=== PATIENT | female | born 1970 | race Caucasian/White ===

== ENCOUNTER 2018-08-21 16:18 | Inpatient (IN) | payer MEDICAID ==
[~2018-08-21] VITALS: Ht 160 cm; Wt 81.2 kg
[2018-08-21 18:00] LABS: BASOPHIL % 0.9 % (0-2); PLATELET COUNT 232 x10^3mcL (130-400)
[2018-08-21 18:03] LABS: RED CELL DISTRIBUTION WIDTH 15.7 % (11.5-14.5)
[2018-08-21 18:13] LABS: CALCIUM 7.9 mg/dL (8.5-10.1); CARBON DIOXIDE 28.8 mmol/L (21-32); CHLORIDE SERUM 109 mmol/L (98-107); CREATININE SERUM 0.5 mg/dL (0.6-1.0); GFR1 > 60 mL/min; GLUCOSE SERUM 110 mg/dL (74-106); POTASSIUM SERUM 3.6 mmol/L (3.5-5.1); SODIUM SERUM 143 mmol/L (136-145)
[2018-08-21 18:27] LABS: rbc morphology (normal/abnorm) ABNORMAL (NORMAL)
[2018-08-21 18:28] LABS: ovalocyte/elliptocyte 1+
[2018-08-21] MEDS ORDERED: IBU600 M2 PO (19:27)
[2018-08-21] MEDS ORDERED: NATURAL IRON65 MG PO (19:28)
[2018-08-21 20:11] LABS: T3 TOTAL 1.07 ng/mL
[2018-08-21 20:15] LABS: MAGNESIUM 2.1 mg/dL (1.8-2.4); PHOSPHOROUS 3.4 mg/dL (2.5-4.9)
[2018-08-21 20:16] LABS: CHOLESTEROL/HDL RATIO 3.9
[2018-08-21 20:38] LABS: FREE T4 0.69 ng/dL (0.76-1.46); FREE THYROXINE INDEX 1.9 ug/dL (1.4-4.5); T4(THYROXINE) 5.7 ug/dL (4.7-13.3)
[2018-08-21 21:38] VITALS: BP 97/51
[2018-08-21 22:50] VITALS: BP 99/48
[2018-08-21 23:45] VITALS: BP 100/44
[2018-08-22] VITALS (8 sets, daily range): BP systolic 99–121; BP diastolic 49–62
[2018-08-22 07:19] LABS: CALCIUM 7.5 mg/dL (8.5-10.1); CARBON DIOXIDE 25.4 mmol/L (21-32); CHLORIDE SERUM 111 mmol/L (98-107); CREATININE SERUM 0.7 mg/dL (0.6-1.0); GFR1 > 60 mL/min; GLUCOSE SERUM 103 mg/dL (74-106); PHOSPHOROUS 3.3 mg/dL (2.5-4.9); POTASSIUM SERUM 3.6 mmol/L (3.5-5.1); SODIUM SERUM 144 mmol/L (136-145)
[2018-08-22 12:01] LABS: PLATELET COUNT 198 x10^3mcL (130-400)
[2018-08-22 12:03] LABS: RED CELL DISTRIBUTION WIDTH 16.6 % (11.5-14.5)
== END 2018-08-22 17:26 | disposition home or self-care (01) | DRG 517 ==
LOC: ED 16:18 → DU 19:16
PROVIDERS: Internal Medicine; Specialist
PROC: 30233N1 Transfusion of Nonautologous Red Blood Cells into Peripheral Vein, Percutaneous Approach (ICD-10-PCS; principal; 2018-08-21)
PROC: 0UDB7ZZ Extraction of Endometrium, Via Natural or Artificial Opening (ICD-10-PCS; 2018-08-22)
DX: N92.1 Excessive and frequent menstruation with irregular cycle (principal); E83.51 Hypocalcemia; D50.0 Iron deficiency anemia secondary to blood loss (chronic); D25.9 Leiomyoma of uterus, unspecified; E02 Subclinical iodine-deficiency hypothyroidism; Z68.31 Body mass index [BMI] 31.0-31.9, adult
CPT/HCPCS: 84439; 90658; J0690; J1170; J1885; J2250; J2405; J3010; J7030; J7040; J7050; P9016; Q0092; Q0163

== ENCOUNTER 2018-10-16 19:32 | Emergency (ER) | payer MEDICAID ==
[~2018-10-16] VITALS: Ht 154.9 cm; Wt 82.1 kg
[~2018-10-16 19:32] MED LIST: IBU600 M2 PO; NATURAL IRON65 MG PO
[2018-10-16 19:40] VITALS: Ht 154.9 cm; Wt 82.1 kg
[2018-10-16 20:27] LABS: PLATELET COUNT 252 x10^3mcL (130-400)
[2018-10-16 20:29] LABS: RED CELL DISTRIBUTION WIDTH 16.6 % (11.5-14.5)
[2018-10-16 20:36] LABS: CALCIUM 8.1 mg/dL (8.5-10.1); CARBON DIOXIDE 28.2 mmol/L (21-32); CHLORIDE SERUM 104 mmol/L (98-107); CREATININE SERUM 0.8 mg/dL (0.6-1.0); GFR1 > 60 mL/min; GLUCOSE SERUM 133 mg/dL (74-106); SODIUM SERUM 139 mmol/L (136-145)
[2018-10-16 20:41] LABS: ALBUMIN 3.1 g/dL (3.4-5.0); ALKALINE PHOSPHATASE 53 U/L (46-116); ALT/SGPT 14 U/L (14-59); AST/SGOT 9 U/L (15-37); BILIRUBIN TOTAL 0.15 mg/dL (0.20-1.00); TOTAL PROTEIN, SERUM 7.1 g/dL (6.4-8.2)
[2018-10-16 22:26] VITALS: BP 116/68
== END 2018-10-16 22:26 | disposition home or self-care (01) ==
LOC: ED 19:32
PROVIDERS: Emergency Medicine
DX: D25.9 Leiomyoma of uterus, unspecified (principal); D64.9 Anemia, unspecified; N93.9 Abnormal uterine and vaginal bleeding, unspecified
CPT/HCPCS: 36415; J1885

== ENCOUNTER 2019-04-26 22:00 | Emergency (ER) | payer MEDICAID ==
[~2019-04-26] VITALS: Ht 167.6 cm; Wt 84.4 kg
[2019-04-26 22:31] VITALS: Ht 167.6 cm; Wt 84.4 kg
[2019-04-27] VITALS: BP 111/65
== END 2019-04-27 | disposition home or self-care (01) ==
LOC: ED 22:00
DX: N93.8 Other specified abnormal uterine and vaginal bleeding (principal); D21.9 Benign neoplasm of connective and other soft tissue, unspecified

== ENCOUNTER 2020-09-25 21:23 | Emergency (ER) | payer MEDICAID ==
[~2020-09-25] VITALS: Ht 154.9 cm; Wt 49.9 kg
[2020-09-25 21:26] VITALS: Ht 154.9 cm; Wt 49.9 kg
[2020-09-25 22:38] LABS: BASOPHIL % 0.4 % (0-2); PLATELET COUNT 228 x10^3mcL (130-400)
[2020-09-25 22:55] LABS: CALCIUM 8.9 mg/dL (8.5-10.1); CARBON DIOXIDE 30.9 mmol/L (21-32); CHLORIDE SERUM 102 mmol/L (98-107); CREATININE SERUM 0.8 mg/dL (0.6-1.0); GFR1 > 60 mL/min; GLUCOSE SERUM 140 mg/dL (74-106); POTASSIUM SERUM 3.9 mmol/L (3.5-5.1); SODIUM SERUM 138 mmol/L (136-145)
[2020-09-25 22:59] LABS: ALBUMIN 3.5 g/dL (3.4-5.0); ALKALINE PHOSPHATASE 99 U/L (46-116); ALT/SGPT 33 U/L (14-59); AST/SGOT 21 U/L (15-37); BILIRUBIN TOTAL 0.5 mg/dL (0.20-1.00); LIPASE 122 IU/L (73-393); TOTAL PROTEIN, SERUM 7.4 g/dL (6.4-8.2)
[2020-09-26 01:22] VITALS: BP 104/46
== END 2020-09-26 01:22 | disposition home or self-care (01) ==
LOC: ED 21:23
PROVIDERS: Emergency Medicine
DX: N23 Unspecified renal colic (principal); I10 Essential (primary) hypertension; E11.9 Type 2 diabetes mellitus without complications
CPT/HCPCS: J1885; J2270

== ENCOUNTER 2020-12-19 20:08 | Emergency (ER) | payer OTHER, MEDICAID ==
[~2020-12-19] VITALS: Ht 160 cm; Wt 74.1 kg
[~2020-12-19 20:08] MED LIST changes: +CIPRO500 MG PO
[2020-12-19 20:23] VITALS: Ht 160 cm; Wt 74.1 kg
[2020-12-19 21:43] VITALS: BP 124/61
== END 2020-12-19 21:44 | disposition home or self-care (01) ==
LOC: ED 20:08
DX: M25.531 Pain in right wrist (principal)